=== PATIENT | female | born 1955 | race Caucasian/White ===

== ENCOUNTER 2020-09-06 10:34 | Emergency (ER) | payer SELFPAY ==
--- NOTE | 2020-09-06 10:40 | ED.PDOC ---
History of Present Illness - General Stated Complaint: Asthma attack Time Seen by Provider: 09/06/20 10:39 - History of Present Illness Initial Comments: Patient reports 2 days history of shortness of breath and wheezing. There has been no fever but a dry cough. She has been very short of breath, particularly with exertion. Patient has had multiple nebulizer treatments, probably about 3 times today. She is currently not taking oral steroids.Patient has a prior history of asthma but has not had prior mechanical ventilation. At home her oxygen saturation was as low as 74% and was 88% on admission to the emergency department. She does not have any known exposure to COVID-19. Timing/Duration: other - 2 days Improving Factors: rest Worsening Factors: other - Exertion Associated Symptoms: cough, shortness of breath Allergies/Adverse Reactions: Allergies Iodine Allergy (Verified 09/06/20 11:06) Penicillins Allergy (Verified 09/06/20 11:06) Home Medications: Ambulatory Orders predniSONE 20 mg PO DAILY 5 Days #15 tab 09/06/20 Past Medical History (General) - Patient Medical History Hx Asthma: Yes Hx Hypertension: Yes Hx Thyroid Disease: Yes Family Medical History - Family History Mother Family History: Unknown Physical Exam - Physical Exam General Appearance: Alert Eye Exam: bilateral normal Ears, Nose, Throat: normal ENT inspection Neck: non-tender, full range of motion Respiratory: no respiratory distress, wheezing - Moderate with slightly reduced airflow diffusely Cardiovascular/Chest: regular rate, rhythm Gastrointestinal/Abdominal: normal bowel sounds, non tender, soft Back Exam: normal inspection, no vertebral tenderness Extremity: no pedal edema, no calf tenderness 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 After the conclusion of her treatment the patient lungs were clear she felt good and desired discharge. - Results/Orders Results/Orders: XAM DESCRIPTION: Chest,1 View CLINICAL HISTORY: Asthma COMPARISON: None. IMPRESSION: Single AP portable upright view of the chest shows cardiac silhouette and pulmonary vasculature to be within normal limits. Lungs are normally aerated and clear. Mild blunting of the right costophrenic angle is seen suggesting small pleural effusion or chronic pleural thickening. Electronically signed by: David Dodd MD 09/06/2020 11:40 AM [facility] - [id number] Vital Signs - 24 hr 09/06/20 09/06/20 09/06/20 10:35 10:52 11:34 Temperature 98.8 F 98.8 F Pulse Rate 88 Pulse Rate [ 82 82 88 pulse ox] Respiratory 22 22 20 Rate Blood Pressure 132/73 130/76 [Right Arm] O2 Sat by Pulse 88 L 96 Oximetry 09/06/20 09/06/20 09/06/20 11:48 12:00 13:00 Temperature 98.8 F 98.4 F Pulse Rate 82 86 79 Pulse Rate [ 86 79 pulse ox] Respiratory 20 20 18 Rate Blood Pressure 133/72 127/68 [Right Arm] O2 Sat by Pulse 97 98 98 Oximetry 09/06/20 09/06/20 14:00 14:59 Temperature 98.4 F 98.3 F Pulse Rate 72 Pulse Rate [ 72 78 pulse ox] Respiratory 20 18 Rate Blood Pressure 110/62 118/69 [Right Arm] O2 Sat by Pulse 98 94 L Oximetry Laboratory Results - last 24 hr 09/06/20 09/06/20 11:10 11:10 WBC 8.0 RBC 5.72 H Hgb 17.0 H Hct 51.9 H MCV 90.7 MCH 29.7 MCHC 32.7 L RDW 14.1 Plt Count 265 MPV 7.0 L Absolute Neuts (auto) 4.80 Absolute Lymphs (auto) 2.40 Absolute Monos (auto) 0.50 Absolute Eos (auto) 0.10 Absolute Basos (auto) 0.10 Neutrophils % 61.0 Lymphocytes % 30.1 Monocytes % 6.8 Eosinophils % 1.1 Basophils % 1.0 Sodium 139 Potassium 3.7 Chloride 97 L Carbon Dioxide 35 H Anion Gap 10.7 L BUN 8 Creatinine 0.56 L BUN/Creatinine Ratio 14.3 Random Glucose 119 H Serum Osmolality 277.0 Calcium 9.3 Total Bilirubin 0.5 AST 14 ALT 14 Alkaline Phosphatase 57 Serum Total Protein 7.4 Albumin 4.4 Globulin 3.0 Albumin/Globulin Ratio 1.5 Rapid COVID-19 test negative. - EKG/XRAY/CT Comments: Normal sinus rhythm, 79/min, SD interval 156, QRS 90 ms. Right axis deviati Departure - Departure Clinical Impression: Asthma Qualifiers: Asthma severity: severe Asthma persistence: unspecified Asthma complication type: with acute exacerbation Qualified Code(s): J45.901 - Unspecified asthma with (acute) exacerbation Time of Disposition: 14:42 Disposition: Discharge to Home or Self Care Condition: Good Departure Forms: ED Discharge - Pt. Copy Instructions: Asthma, Adult (DC) Diet: regular diet Activity: other - Activity as tolerated Prescriptions: predniSONE 20 mg PO DAILY 5 Days #15 tab Home Medications: Ambulatory Orders predniSONE 20 mg PO DAILY 5 Days #15 tab 09/06/20 Additional Instructions: Continue efforts to stop smoking if possible. Return if your shortness of breath worsens or you have high fever or increasing serious symptoms.
[2020-09-06] MEDS ORDERED: IPRATROPIUM/ALBUTEROL 3 ML VIAL NEB ONE (11:04)
[2020-09-06] MEDS ORDERED: MAGNESIUM SULFATE PREMIX 2GM 2 GM in PREMIX BAG 1 BAG IVPB ONE (11:04)
[2020-09-06] MEDS ORDERED: methylPREDNISolone SODIUM SUC 125 MG/2 ML VIAL IV ONE (11:04)
--- NOTE | 2020-09-06 11:41 | RAD ---
EXAM DESCRIPTION: Chest,1 View CLINICAL HISTORY: Asthma COMPARISON: None. IMPRESSION: Single AP portable upright view of the chest shows cardiac silhouette and pulmonary vasculature to be within normal limits. Lungs are normally aerated and clear. Mild blunting of the right costophrenic angle is seen suggesting small pleural effusion or chronic pleural thickening. Electronically signed by: David Dodd MD 09/06/2020 11:40 AM [facility]
[2020-09-06 15:00] VITALS: BP 118/69; TEMP 98.3; O2SAT 94
== END 2020-09-06 14:59 | disposition home or self-care (01) ==
LOC: ER 10:34
DX: J45.901 Unspecified asthma with (acute) exacerbation (principal); I10 Essential (primary) hypertension; E78.5 Hyperlipidemia, unspecified; Z91.041 Radiographic dye allergy status; Z88.0 Allergy status to penicillin; Z99.81 Dependence on supplemental oxygen; Z20.822 Contact with and (suspected) exposure to COVID-19
CPT/HCPCS: 36415; 71045; 80053; 85025; 87635; 94644; J2930; J3475; J7620